=== PATIENT | male | born 1945 | race Caucasian/White ===

== ENCOUNTER 2020-05-18 15:55 | Emergency (ER) | payer MEDICARE, OTHER ==
[2020-05-18] MEDS ORDERED: Morphine 4 MG/ML VIAL ONE (17:20)
[2020-05-18] MEDS ORDERED: Promethazine HCl 25 MG/ML VIAL ONE (17:21)
== END 2020-05-18 17:43 | disposition home or self-care (01) ==
LOC: NAV ERS 15:55
DX: G89.29 Other chronic pain (principal); M54.5 Low back pain
CPT/HCPCS: 96372; 99283; J2270; J2550